=== PATIENT | male | born 1990 | race Two or more races ===

== ENCOUNTER 2021-01-24 14:11 | Emergency (ER) | payer BC, OTHER ==
[~2021-01-24] VITALS: Ht 167.6 cm; Wt 70.3 kg
[2021-01-24] MEDS ORDERED: EPINEPHrine HCL 1 MG/1 ML AMP SC ONE (16:30)
[2021-01-24] MEDS ORDERED: diphenhdrAMINE HCL 50 MG/1 ML VL IM ONE (16:30)
[2021-01-24] MEDS ORDERED: methylPREDNISolone SOD SUCC 125 MG/2 ML VL IM ONE (16:30)
[2021-01-24 16:36] VITALS: BP 135/82
== END 2021-01-24 17:30 | disposition home or self-care (01) ==
LOC: ER 14:11
DX: L23.7 Allergic contact dermatitis due to plants, except food (principal); L27.9 Dermatitis due to unspecified substance taken internally
CPT/HCPCS: 96372; 99284; J0171; J1200; J2930